=== PATIENT | female | born 1960 | race Caucasian/White ===

== ENCOUNTER → 2019-10-26 11:49 | Outpatient (CLI) | payer OTHER, SELFPAY ==
--- NOTE | 2019-10-26 12:02 | DI.MG.S_ITS ---
Patient Name: DARCIE VILLELA date: 1960 Sex: F Attending Physician: Mario Indications: Date: 10/26/2019 12:19 At the request of: NATI MCCRARY Procedure: MM screening mammo BI BILATERAL DIGITAL SCREENING MAMMOGRAM 3D/2D WITH CAD: 10/26/2019 CLINICAL: Routine screening. Comparison is made to exams dated: 02/15/2010 mammogram, 03/11/2013 mammogram - [facility], and 11/01/2016 mammogram - [facility]. There are scattered fibroglandular elements in both breasts. Current study was also evaluated with a Computer Aided Detection (CAD) system. No significant masses, calcifications, or other findings are seen in either breast. There has been no significant interval change. IMPRESSION: NEGATIVE There is no mammographic evidence of malignancy. A 1 year screening mammogram is recommended. This exam was interpreted at Station ID: [id number]. NOTE: For mammograms, a report in lay terms will be sent to the patient. Approximately 15% of breast malignancies will not be visualized mammographically. In the management of a palpable breast mass, a negative mammogram must not discourage biopsy of a clinically suspicious lesion. Electronically Signed By: Nancy chauhan/edda:10/26/2019 15:15:25 letter sent: Normal Exam ACR BI-RADS Category 1: Negative 3341F
== END ==
PROVIDERS: PCP Family Medicine; Referring Provider Family Medicine; Visit Provider Obstetrics & Gynecology
DX: Z12.31 Encounter for screening mammogram for malignant neoplasm of breast (principal)
CPT/HCPCS: 77063; 77067

== ENCOUNTER → 2019-11-26 11:42 | Outpatient (CLI) | payer OTHER, SELFPAY | PROVIDERS: PCP Family Medicine; Referring Provider Obstetrics & Gynecology; Visit Provider Obstetrics & Gynecology | DX: N95.0 Postmenopausal bleeding (principal) | CPT/HCPCS: 36415; 83001 ==

== ENCOUNTER → 2019-12-13 11:35 | Outpatient (CLI) | payer OTHER, SELFPAY ==
[2019-12-14 00:27] LABS: COVID19 Sendout Not Detected (Not Detect)
== END ==
PROVIDERS: PCP Family Medicine; Visit Provider Physician Assistant
DX: Z11.59 Encounter for screening for other viral diseases (principal)
CPT/HCPCS: 87635

== ENCOUNTER 2019-12-16 10:03 | Day surgery (SDC) | payer OTHER, SELFPAY ==
[2019-12-10 14:59] VITALS: BMI 34.1
[2019-12-16] VITALS (10 sets, daily range): BP systolic 117–142; BP diastolic 68–83; PULSE 70–75; RESP 15–22; TEMP 36.1–37.1; O2SAT 92–96; BMI 32.5
--- NOTE | 2019-12-16 | PATH_ITS ---
[facility] Accession Number: [id number] . 01 Material submitted: . PART A: endometrium - LEFT UTERINE ENDOMETRIAL CURETTINGS PART B: endometrium - RIGHT UTERINE ENDOMETRIAL CURETTINGS . 02 Diagnosis: A. Left Uterine Endometrial Curettings: Small fragments of endometrial tissue and strips of endometrial glandular epithelium; negative for glandular hyperplasia, cytologic atypia, or malignancy; please see comment. Small fragments of dystrophic/non-psammomatous calcification are present. Avulsed portion of atypical metaplastic squamous mucosa, favor a reactive etiology. Portions of inflamed glandular tissue, possibly from endocervix / lower uterine segment; negative for glandular dysplasia, glandular hyperplasia, atypia, or malignancy. . B. Right Uterine Endometrial Curettings: Portions of inactive endometrium; negative for glandular hyperplasia, cytologic atypia, or malignancy. [facility] 12/20/2019 1558 Local . 02 Comment: A. Due to the scant nature of this biopsy, it may not be entirely bilingual call center representative of this patient's left uterine endometrium; additional sampling could be considered, if clinically appropriate. . 02 Electronically signed: . Cindy Goldstein MD, Pathologist NPI- [id number] . 01 Gross description: . A. Specimen A is received in formalin, labeled uterine endometrial curetting and consists of multiple mckeon-pink fragments of soft tissue admixed with mucous and clotted blood, measuring 2.0 x 1.0 x 0.5 cm in aggregate. The specimen is filtered and entirely submitted in cassette A1. B. Specimen B is received in formalin, labeled right uterine endometrial curettings and consists of multiple red-brown fragments of soft tissue admixed with clotted blood, measuring 2.0 x 1.0 x 0.3 cm in aggregate. The specimen is filtered and entirely submitted in cassette B1. ([id number]) /[facility] 12/17/2019 1535 Local . 02 Pathologist provided ICD-10: N95.0, N85.00, Q51.3 . 02 CPT . 525758, 098176 Performed at: 01 [facility] [address] [id number] MD Bubba Luciano MD Phone: [phone] Performed at: 02 [facility] [address] [place] [id number] MD Laura Fischer MD Phone: [phone]
[2019-12-16] MEDS: LACTATED RINGERS 1,000 ML 42 ML IV (10:49)
--- NOTE | 2019-12-16 10:55 | SUR.OPER ---
Lithotomy on padded OR bed, head on pillow, arms secured on padded arm boards at <90 degrees abduction. Legs secured in padded yellow fins stirrups.
--- NOTE | 2019-12-16 11:07 | PM.HP.1 ---
History of Present Illness History of Present Illness Date Patient Seen: 12/16/19 Time Patient Seen: 11:07 Chief complaint: [facility] Narrative: Patient is a 59-year-old 1 para 1002 who presents today for a D&C hysteroscopy due to abnormal uterine bleeding, bicornuate uterus, and endometrial hyperplasia in both endometrial cavities Patient History Medical History (Updated 10/05/19 @ 17:17 by Jessica Martin MD) Bicornuate uterus (Acute) Hypertrophic cardiomyopathy (Acute) Mitral regurgitation (Acute) Status post hysteroscopy (Acute) Surgical History (Updated 10/05/19 @ 17:17 by Jessica Martin MD) S/P tonsillectomy and adenoidectomy (Acute) Status post endometrial ablation (Acute) [place] teeth extracted (Acute) Family & Social History Family History (Updated 11/14/19 @ 18:23 by Elyse Darby) Father Cancer Mother Cancer Grandmother Cancer Grandmother Congestive heart failure Social History: household members spouse Tobacco & Substance use: Smoking Status Never smoker alcohol intake never Substance Use Type does not use Meds Home Medications and Allergies Home Medications Medication Instructions Recorded Confirmed Type disopyramide phosphate 100 mg 150 mg PO TID 10/05/19 12/16/19 History capsule,extended release metoprolol succinate 25 mg 50 mg PO BID 10/05/19 12/16/19 History tablet,extended release 24 hr Allergies Allergy/AdvReac Type Severity Reaction Status Date / Time peanut Allergy Verified 11/16/19 16:08 epinephrine AdvReac Severe Palpitation Verified 12/16/19 10:21 s Exam Vital Signs (past 8 hours): - 12/16/19 10:37 Temperature 98.7 F Pulse Rate 75 Respiratory Rate 16 Blood Pressure 131/80 Pulse Oximetry 96 Oxygen Delivery Method Room Air Narrative Exam Narrative: HEENT: No thyromegaly, no anterior cervical or supraclavicular lymphadenopathy. Lungs:Clear to auscultation bilaterally, no wheezes. Cardiovascular: Regular rate and rhythm, no murmurs, rubs, or gallops. Abdomen: No scars. No hepatosplenomegaly. No masses palpable. External genitalia: Normal Vagina: Normal Cervix: Normal parous Bimanual exam: 10 Week size uterus. Wide Mobile. Rectal: No masses. Assessment & Plan Assessment & Plan narrative: Assessment: 59-year-old 1 para 1002 with a bicornuate uterus, abnormal uterine bleeding, and thickened endometrial lining in each cavity Plan: D&C hysteroscopy with possible polypectomy The risks, benefits, and alternatives to the procedure were explained to the patient. The risks including bleeding, infection, and uterine perforation. She understands these risks and agrees to proceed. A full par Q was held and consent form was signed. COVID-19 COVID-19 status: Negative Result date/Date tested (Pos, Neg/Pending): 12/13/19 Time Spent With Patient Time with patient: 15-24 minutes
--- NOTE | 2019-12-16 11:09 | PM.PREOP ---
Pre-operative Note COVID-19 COVID-19 status: Negative Result date/Date tested (Pos, Neg/Pending): 12/13/19 Interval Note History & Physical reviewed/Exam performed by Physician: Yes Changes to H&P: No H&P completed within 30 days and has changed as indicated here:: 12/16/19
--- NOTE | 2019-12-16 11:48 | PM.GYNOP.1 ---
Operative Date/Time/Diagnoses Date of procedure: 12/16/19 Time of procedure: 11:48 Pre-op diagnosis: Abnormal uterine bleeding Endometrial hyperplasia by ultrasound Bicornuate uterus Post-op diagnosis: same Procedure & Clinicians Procedure: Procedures Operation Date: 12/16/19 11:15 Actual Procedures Side Surgeon p Hysteroscopy D&C of both uterine cavities, I&D right vulvar abscess Jessica Martin MD Indications: Abnormal uterine bleeding Bicornuate uterus Endometrial hyperplasia by ultrasound Surgeon: Jessica Martin Anesthesia Type: General (LMA) Operative Notes Findings: Bicornuate uterus measuring 8 cm Fallopian tube ostia seen No abnormalities in the endometrium Closure Type: not applicable Specimen(s): endometrial curettings (From both sides of the uterus) Estimated blood loss (mL): 5 Blood products transfused: none Procedure in detail: After informed consent was obtained, the patient was taken to the operating room where she was placed in the dorsal supine position. After adequate LMA general anesthesia was achieved, she was placed in the dorsal lithotomy position, and prepped and draped in the usual sterile fashion. A time-out was performed. A bivalve speculum was placed into the vagina and the anterior lip of the cervix grasped with a single-tooth tenaculum. The cervical os was sequentially dilated towards the patient's left side until the hysteroscope could pass easily into the cervix. At the top of the cervix the left side had a large opening going into the uterus, and on the right side a very small opening. The hysteroscope was directed into the left side of the uterus. The fallopian tube ostia was observed. There were no polyps, fibroids, or thickened areas. The hysteroscope was removed. Sharp curettage was performed of the left side of the uterus yielding moderate amount of endometrial curettings. The right side of the uterus was then dilated to the # 8 Hegar dilator. The hysteroscope passed easily into the right side of the endometrial cavity. There were no polyps, fibroids, or thickened areas. The fallopian tube ostia was observed. The hysteroscope was removed. Sharp curettage was performed on the right side of the uterus yielding moderate amount of endometrial curettings. The instruments were removed from the uterus. The single-tooth tenaculum was removed from the anterior lip of the cervix. The bivalve speculum was removed from the vagina. Sponge, lap, and instrument counts were correct x2. The patient tolerated the procedure well, and was taken to PACU in stable condition. Complications: none Post-operative Condition: stable Disposition: PACU Plan for aftercare: Home after recovery
--- NOTE | 2019-12-16 12:09 | SUR.PHASEI ---
Patient denies pain. Tolerating po. Drsg with scant amount of red drainage.
[2019-12-16] MEDS: OXYCODONE/ACETAMINOPHEN 5/325 TABLET 1 TAB PO (12:19)
[2019-12-16] MEDS: hydrOXYzine 50 MG/ML INJ 25 MG IM (12:20)
--- NOTE | 2019-12-16 12:31 | SUR.PHASEII ---
Medicated patient for c/o back pain.
== END 2019-12-16 13:13 | disposition home or self-care (01) ==
PROVIDERS: Referring Provider Obstetrics & Gynecology; Visit Provider Obstetrics & Gynecology
PROC: 0UDB8ZZ Extraction of Endometrium, Via Natural or Artificial Opening Endoscopic (ICD-10-PCS; CPT 58558; principal; 2019-12-16 11:15)
DX: N85.00 Endometrial hyperplasia, unspecified (principal); Q51.3 Bicornate uterus; N76.4 Abscess of vulva
CPT/HCPCS: 58558; 56405; 87070; 87075; 87076; 87077; 87205; J1100; J1885; J2250; J2405; J2704; J3010; J3410

== ENCOUNTER → 2022-08-09 09:28 | Outpatient (CLI) | payer OTHER, SELFPAY ==
--- NOTE | 2022-08-09 09:30 | DI.RAD.S_ITS ---
PROCEDURE: XR CHEST 2V INDICATIONS: Cough TECHNIQUE: 2 views of the chest were acquired. COMPARISON: None. FINDINGS: Surgical changes and devices: None. Lungs and pleura: Lungs are clear. No pleural effusions or pneumothorax. Mediastinum: Mediastinal contours are normal. Heart size is normal. Bones and chest wall: No suspicious bony abnormalities. Soft tissues appear unremarkable. IMPRESSION: No acute cardiopulmonary disease. Dictated by: Abbe Guzman M.D. on 08/09/2022 at 9:38 Approved by: Abbe Guzman M.D. on 08/09/2022 at 9:38
== END ==
PROVIDERS: PCP Internal Medicine Cardiovascular Disease; Referring Provider Nurse Practitioner Family; Visit Provider Nurse Practitioner Family
DX: R05.9 Cough, unspecified (principal)
CPT/HCPCS: 71046

== ENCOUNTER → 2023-07-29 13:58 | Outpatient (CLI) | payer BC, SELFPAY ==
--- NOTE | 2023-07-29 14:01 | DI.MG.S_ITS ---
BILATERAL DIGITAL SCREENING MAMMOGRAM 3D/2D WITH CAD: 07/29/2023 CLINICAL: Routine screening. Comparison is made to exams dated: 10/26/2019 mammogram - [facility], 11/01/2016 mammogram - [facility], and 03/11/2013 mammogram - [facility]. There are scattered areas of fibroglandular density in both breasts (category b / 25%-50% glandular tissue). Current study was also evaluated with a Computer Aided Detection (CAD) system. No significant masses, calcifications, or other findings are seen in either breast. There has been no significant interval change. IMPRESSION: NEGATIVE There is no mammographic evidence of malignancy. A 1 year screening mammogram is recommended. Based on the Tyrer Cuzick model (a risk assessment model) the patient's lifetime risk is 7.5% and her 10 year risk is 3.1%. According to the ACR, ACS, and NCCN guidelines, an annual breast MRI exam along with mammogram is recommended if the patient's lifetime risk is 20% or greater. This exam was interpreted at Station ID: [id number]. NOTE: For mammograms, a report in lay terms will be sent to the patient. Approximately 15% of breast malignancies will not be visualized mammographically. In the management of a palpable breast mass, a negative mammogram must not discourage biopsy of a clinically suspicious lesion. Electronically Signed By: Jimmie mayo/edda:07/30/2023 16:45:17 letter sent: Normal Exam ACR BI-RADS Category 1: Negative 3341F
== END ==
PROVIDERS: PCP Family Medicine; Referring Provider Family Medicine; Visit Provider Family Medicine
DX: Z12.31 Encounter for screening mammogram for malignant neoplasm of breast (principal); R92.323 Mammographic fibroglandular density, bilateral breasts
CPT/HCPCS: 77063; 77067